=== PATIENT | female | born 1955 | race Caucasian/White ===

== ENCOUNTER 2017-05-11 15:27 | Emergency (ER) | payer OTHER | END 2017-05-11 18:05 | disposition home or self-care (01) | LOC: E/R 15:27 | DX: J02.9 Acute pharyngitis, unspecified (principal) | CPT/HCPCS: 99283; Z7502 ==

== ENCOUNTER 2017-05-27 08:12 | Emergency (ER) | payer OTHER | END 2017-05-27 11:57 | disposition home or self-care (01) | LOC: FTE 08:12 | DX: H92.03 Otalgia, bilateral (principal) | CPT/HCPCS: 99283; Z7502 ==